=== PATIENT | female | born 1960 | race Two or more races ===

== ENCOUNTER 2024-06-05 10:55 | Day surgery (SDC) | payer MEDICAID, SELFPAY ==
[2024-06-04 10:43] VITALS: BMI 28.7
[2024-06-05] VITALS (15 sets, daily range): BP systolic 102–134; BP diastolic 62–78; PULSE 63–78; RESP 11–18; TEMP 36.2–36.5; O2SAT 97–100; BMI 30.2
[2024-06-05] MEDS: MIDAZOLAM INJ 1 MG/ML VIAL 2 ML (ASD USE ONLY) 2 MG IV (13:16)
[2024-06-05] MEDS: fentaNYL CIT INJ 50 mCg/ML AMP 2ML (ASD USE ONLY) IV (13:18)
[2024-06-05] MEDS: RINGERS LACTATED 1000 ML 1,000 ML 125 ML IV (13:19)
== END 2024-06-05 14:40 | disposition home or self-care (01) ==
PROVIDERS: Referring Provider Surgery; Visit Provider Surgery
PROC: 0DBE8ZX Excision of Large Intestine, Via Natural or Artificial Opening Endoscopic, Diagnostic (ICD-10-PCS; CPT 45380; principal; 2024-06-05 13:00)
DX: Z12.11 Encounter for screening for malignant neoplasm of colon (principal); Q43.8 Other specified congenital malformations of intestine
CPT/HCPCS: 45378; A4217; J2250; J3010; J7120